=== PATIENT | female | born 1990 | race Hispanic/Latino ===

== ENCOUNTER 2018-07-28 13:14 | Emergency (ER) | payer OTHER ==
[~2018-07-28] VITALS: Ht 165.1 cm; Wt 122.7 kg
[2018-07-28 13:15] VITALS: BP 128/69
[2018-07-28] MEDS ORDERED: PRENTAB9 PO (13:24)
[2018-07-28 15:27] LABS: BASO % 0.3 % (0.0-1.0); EOS # 0.1 10^3/uL (0.0-0.50); EOS % 0.9 % (0.0-3.0); HEMATOCRIT 39.3 % (36.0-47.0); HEMOGLOBIN 12.3 g/dl (12.0-15.5); LYMPH # 2.7 10^3/uL (1.5-6.5); LYMPH % 30.4 % (24.0-44.0); MEAN CORPUSCULAR HEMOGLOBIN 24.7 pg (27.0-33.0); MEAN CORPUSCULAR HGB CONC 31.3 g/dl (32.0-36.5); MEAN CORPUSCULAR VOLUME 78.9 fl (80.0-96.0); MONO # 0.6 10^3/uL (0.0-0.8); MONO % 6.9 % (0.0-5.0); NEUTROPHILS # 5.4 10^3/uL (1.8-7.7); NEUTROPHILS % 61.3 % (36.0-66.0); PLATELET COUNT, AUTOMATED 329 10^3/uL (150-450); RED BLOOD COUNT 4.98 10^6/uL (4.00-5.40); WHITE BLOOD COUNT 8.8 10^3/uL (4.0-10.0)
[2018-07-28 16:16] LABS: BLOOD UREA NITROGEN 6 MG/DL (7-18); CALCIUM LEVEL 8.6 MG/DL (8.5-10.1); CARBON DIOXIDE LEVEL 25 MEQ/L (21-32); CHLORIDE LEVEL 106 MEQ/L (98-107); GLOMERULAR FILTRATION RATE > 60.0 (>60); GLUCOSE, FASTING 83 MG/DL (70-100); HCG, SERUM QUANTITATIVE 26954 MIU/ML; POTASSIUM SERUM 3.7 MEQ/L (3.5-5.1); SODIUM LEVEL 137 MEQ/L (136-145)
[2018-07-28] MEDS ORDERED: KEFL500C17 PO (16:50)
--- NOTE | 2018-07-28 17:23 | REP ---
FIRST TRIMESTER ULTRASOUND: Real-time sonographic evaluation of the gravid uterus is performed utilizing transabdominal technique. There is a single living intrauterine gestation. The estimated gestational age is 7 weeks 2 days based on a crown-rump length of 11 mm. EDC 03/14/2019. heart rate is 143 beats per minute. There is no subchorionic hemorrhage. No maternal adnexal region abnormality is seen. There is no evidence of ovarian torsion. Electronically Signed by Carlo Chan MD 07/28/2018 06:35 P
== END 2018-07-28 17:02 | disposition home or self-care (01) ==
LOC: M ED 13:14
DX: O23.91 Unspecified genitourinary tract infection in pregnancy, first trimester (principal); R82.71 Bacteriuria; Z3A.01 Less than 8 weeks gestation of pregnancy

== ENCOUNTER 2018-08-12 21:17 | Emergency (ER) | payer OTHER ==
[~2018-08-12] VITALS: Ht 167.6 cm; Wt 120.9 kg
[~2018-08-12 21:17] MED LIST: KEFL500C17 PO; PRENTAB9 PO
[2018-08-12] MEDS ORDERED: NS 1,000 ML IV ONE (22:45)
[2018-08-12] MEDS ORDERED: ACETAMINOPHEN TAB 650MG DOSE (2X325MG) PO ONE (22:45)
[2018-08-12] MEDS ORDERED: DOCUSATE SODIUM 100 MG CAP PO ONE (23:45)
[2018-08-12 23:53] LABS: BASO % 0.3 % (0.0-1.0); EOS % 0.3 % (0.0-3.0); HEMATOCRIT 36.4 % (36.0-47.0); HEMOGLOBIN 11.6 g/dl (12.0-15.5); LYMPH % 26.3 % (24.0-44.0); MEAN CORPUSCULAR HEMOGLOBIN 24.8 pg (27.0-33.0); MEAN CORPUSCULAR HGB CONC 31.9 g/dl (32.0-36.5); MEAN CORPUSCULAR VOLUME 77.8 fl (80.0-96.0); MONO # 0.8 10^3/uL (0.0-0.8); MONO % 6.9 % (0.0-5.0); NEUTROPHILS # 7.4 10^3/uL (1.8-7.7); NEUTROPHILS % 65.8 % (36.0-66.0); PLATELET COUNT, AUTOMATED 333 10^3/uL (150-450); RED BLOOD COUNT 4.68 10^6/uL (4.00-5.40); WHITE BLOOD COUNT 11.2 10^3/uL (4.0-10.0)
--- NOTE | 2018-08-13 00:07 | REPVR ---
EXAM: US First Trimester, Transabdominal EXAM DATE/TIME: 08/12/2018 11:11 PM CLINICAL HISTORY: 27 years old, female; complicated by abdominal or pelvic pain; Left lower quadrant; First trimester; Gestational age or lmp: Lmp 06/08/18; ; Additional info: Abdominal cramping TECHNIQUE: Imaging protocol: Real-time transabdominal obstetrical ultrasound of the maternal pelvis and a first trimester , less than 14 weeks 0 days, with image documentation. COMPARISON: No relevant prior studies available. FINDINGS: GESTATION: Gestation: Single live intrauterine corresponding to 10 weeks 0 days with MINDI of 03/10/19, concordant with prior ultrasound and LMP. pole is identified. [place]-rump length is 3.1 cm. Heart rate: heart rate is 153 beats per minutes. Placenta: No subchorionic hemorrhage was identified. Amniotic fluid: Amniotic and chorionic fluid are normal for gestational age. MATERNAL: Uterus: Unremarkable. Cervix: Unremarkable. Right adnexa: Unremarkable. Left adnexa: Unremarkable. Intraperitoneal: No intraperitoneal free fluid. IMPRESSION: No acute finding. Single live intrauterine corresponding to 10 weeks 0 days with MINDI of 03/10/19, concordant with prior ultrasound and LMP. Electronically signed by: Mare Gonzalez On 08/13/2018 00:07:10 AM
[2018-08-13 01:14] VITALS: BP 134/79
[2018-08-13 01:15] LABS: ALBUMIN 3.4 GM/DL (3.2-5.2); ALT/SGPT 20 U/L (12-78); BILIRUBIN,DIRECT < 0.1 MG/DL (0.0-0.2); BILIRUBIN,TOTAL 0.2 MG/DL (0.2-1.0); BLOOD UREA NITROGEN 9 MG/DL (7-18); CALCIUM LEVEL 8.4 MG/DL (8.5-10.1); CARBON DIOXIDE LEVEL 23 MEQ/L (21-32); CHLORIDE LEVEL 108 MEQ/L (98-107); CREATININE FOR GFR 0.72 MG/DL (0.55-1.30); GLOMERULAR FILTRATION RATE > 60.0 (>60); GLUCOSE, FASTING 83 MG/DL (70-100); HCG, SERUM QUANTITATIVE 49497 MIU/ML; LIPASE 269 U/L (73-393); POTASSIUM SERUM 3.6 MEQ/L (3.5-5.1); SODIUM LEVEL 138 MEQ/L (136-145); TOTAL PROTEIN 7.4 GM/DL (6.4-8.2)
[2018-08-13] MEDS ORDERED: COLA100C5 PO (01:27)
== END 2018-08-13 01:35 | disposition home or self-care (01) ==
LOC: M ED 21:17
DX: O99.611 Diseases of the digestive system complicating pregnancy, first trimester (principal); Z3A.10 10 weeks gestation of pregnancy; Z87.440 Personal history of urinary (tract) infections; Z86.19 Personal history of other infectious and parasitic diseases; Z79.899 Other long term (current) drug therapy

== ENCOUNTER 2018-09-24 19:10 | Emergency (ER) | payer OTHER ==
[~2018-09-24] VITALS: Ht 167.6 cm; Wt 119.1 kg
[~2018-09-24 19:10] MED LIST changes: +COLA100C5 PO
[2018-09-24 19:11] VITALS: BP 126/63
== END 2018-09-24 20:50 | disposition home or self-care (01) ==
LOC: M ED 19:10
DX: O26.892 Other specified pregnancy related conditions, second trimester (principal); R10.2 Pelvic and perineal pain; Z3A.15 15 weeks gestation of pregnancy

== ENCOUNTER 2018-12-30 05:18 | Emergency (ER) | payer OTHER ==
[~2018-12-30] VITALS: Ht 165.1 cm; Wt 119.1 kg
[2018-12-30 08:28] LABS: HEMATOCRIT 34.9 % (36.0-47.0); MEAN CORPUSCULAR HEMOGLOBIN 24.9 pg (27.0-33.0); MEAN CORPUSCULAR HGB CONC 31.5 g/dl (32.0-36.5); PLATELET COUNT, AUTOMATED 305 10^3/uL (150-450); RED BLOOD COUNT 4.42 10^6/uL (4.00-5.40); WHITE BLOOD COUNT 9.2 10^3/uL (4.0-10.0)
[2018-12-30 09:07] LABS: ALBUMIN 2.6 GM/DL (3.2-5.2); ALT/SGPT 25 U/L (12-78); BILIRUBIN,DIRECT < 0.1 MG/DL (0.0-0.2); BILIRUBIN,TOTAL 0.2 MG/DL (0.2-1.0); TOTAL PROTEIN 7.7 GM/DL (6.4-8.2)
[2018-12-30 10:11] VITALS: BP 112/61
== END 2018-12-30 10:17 | disposition home or self-care (01) ==
LOC: M ED 05:18
DX: O12.22 Gestational edema with proteinuria, second trimester (principal); Z3A.25 25 weeks gestation of pregnancy

== ENCOUNTER 2019-02-17 00:56 | Inpatient (IN) | payer OTHER ==
[~2019-02-17] VITALS: Ht 165.1 cm; Wt 120.0 kg
[2019-02-17] VITALS (12 sets, daily range): BP systolic 113–139; BP diastolic 57–75
[2019-02-17] MEDS ORDERED: LR 1,000 ML IV SCH (02:45)
[2019-02-17] MEDS ORDERED: LR 1,000 ML IV ONE (02:45)
--- NOTE | 2019-02-17 02:50 | IPNPDOC ---
Text Note Date of Service The patient was seen on 02/17/19. NOTE Patient is a 28 yo G1 @ 36+3wks gestation presents with concern for new onset vaginal bleeding that started 2 hrs prior. Report she did not have contractions prior to bleeding. now she is feeling mild contractions. denies LOF. vitals: normal discomfort with contractions, AOX3 abd: obese, gravid, nttp, nd cephalic by cam's FHT: 135/mod mariano/pos accel/no decel toco: ctx q 1-2mins speculum exam: old blood in vault, cervix visually closed, no active bleeding CE: Fingertip/50/high, posterior TVUS: cervix visually long, no funneling, no hematoma noted, placental edge no within 4cm of cervix, head well applied. a/p patient @ 36+3 weeks with vaginal bleeding. no active bleeding at this time. start IV and hydrate patient. get abruption labs and type and screen. Will reassess after hydration and recheck cervix. PHANI BRAN DO Feb 17, 2019 02:50
[2019-02-17 03:06] LABS: HEMATOCRIT 29.9 % (36.0-47.0); HEMOGLOBIN 9.4 g/dl (12.0-15.5); MEAN CORPUSCULAR HEMOGLOBIN 23.4 pg (27.0-33.0); MEAN CORPUSCULAR HGB CONC 31.4 g/dl (32.0-36.5); MEAN CORPUSCULAR VOLUME 74.6 fl (80.0-96.0); PLATELET COUNT, AUTOMATED 364 10^3/uL (150-450); RED BLOOD COUNT 4.01 10^6/uL (4.00-5.40); WHITE BLOOD COUNT 14.3 10^3/uL (4.0-10.0)
[2019-02-17 03:19] LABS: INR 0.99; PROTHROMBIN TIME 12.8 SECONDS (11.8-14.0)
[2019-02-17 03:20] LABS: PARTIAL THROMBOPLASTIN TIME 28.8 SECONDS (25.0-38.4)
[2019-02-17 03:34] LABS: ALBUMIN 2.2 GM/DL (3.2-5.2); ALT/SGPT 17 U/L (12-78); BILIRUBIN,TOTAL 0.2 MG/DL (0.2-1.0); BLOOD UREA NITROGEN 8 MG/DL (7-18); CALCIUM LEVEL 8.3 MG/DL (8.5-10.1); CARBON DIOXIDE LEVEL 19 MEQ/L (21-32); CHLORIDE LEVEL 110 MEQ/L (98-107); CREATININE FOR GFR 0.65 MG/DL (0.55-1.30); GLOMERULAR FILTRATION RATE > 60.0 (>60); GLUCOSE, FASTING 93 MG/DL (70-100); POTASSIUM SERUM 4.4 MEQ/L (3.5-5.1); SODIUM LEVEL 136 MEQ/L (136-145); TOTAL PROTEIN 6.5 GM/DL (6.4-8.2)
[2019-02-17] MEDS: LR 1,000 ML IV SCH ×3 (05:31→21:31)
--- NOTE | 2019-02-17 06:22 | HPEPDOC ---
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 ABDOMEN: Gravid and non-tender to touch. FETUS: Is vertex (VTX) by sterile vaginal examination (SVE), fetus is vertex (VTX) by Cam and US. HEART RATE: Regular rate and rhythm. LUNGS: Clear to auscultation (CTA). EXTREMITIES: No edema/erythema/tenderness. EFW: 3200gm by cam's Other physical findings bright red blood with speculum exam and cervical check Laboratory Data 24H LABS Laboratory Tests 2 02/17/19 02:57: Nucleated Red Blood Cells % (auto) 0.0, Prothrombin Time 12.8, Prothromb Time International Ratio 0.99, Activated Partial Thromboplast Time 28.8, Fibrinogen 676H, Anion Gap 7L, Glomerular Filtration Rate > 60.0, Calcium Level 8.3L, Total Bilirubin 0.2, Aspartate Amino Transf (AST/SGOT) 16, Alanine Aminotransferase (ALT/SGPT) 17, Alkaline Phosphatase 162H, Total Protein 6.5, Albumin 2.2L, Albumin/Globulin Ratio 0.51L CBC/BMP Laboratory Tests 02/17/19 02:57 Pertinent Laboratoy Data Blood Type: O+ RBC Antibody Screen: Negative HIV: Negative Hepatitis B: Negative Rapid Plasma Reagin: Nonreactive Rubella: Immune Chlamydia/Gonorrhea: Negative Group B Streptococcus: Negative ([id number]) Glucose Tolerance Test: 113 Anatomy Ultrasound Placenta Location: Anterior Normal Anatomy: Yes Placenta Previa: No Other Ultrasounds growth scan @32+4wks (EFW 2245g, 75%tile) Steroid Therapy Steroid Therapy: No Vaginal Examination Dilation: Fingertip Effacement: 50% Station: -3 Cervical Consistency: Firm Cervical Position: Posterior Presentation: Cephalic presentation Assessment Heart Rate (FHR): 135 Variability: Moderate Accelerations: Positive Decelerations: None Tocometer Contractions: Yes Frequency: every 1-3 min. Assessment/Plan Assessment patient is a 28 yo G1 @ 36+3wks MINDI [id number] but sure lmp c/w 1st trimester US. patient with s/s concerning for placenta abruption. Patient currently stable and fht shows a reactive tracing. Recommend induction of labor at this time. Discussed induction of labor starting with pitocin and roland bulb and arom as indicated. Discussed external monitor and internal monitor as indicated with IUPC and or FSE. Discussed risk of emergent section, use of forceps or vacuum assisted vaginal delivery for concerns or prolonged 2nd stage, risks associated with forceps and vacuum, infection requiring antibiotics and extended hospital stay, bleeding requiring blood transfusion and associated risk of anaphylactic reaction as well as transmission of blood borne pathogens, episiotomy and pain. Plan Admit and orient. Effervescent Salts Compounder and consent. Diet: clear liquid Group B Streptococcus (GBS) Neg. Labs and intravenous (IV) per unit protocol. Counseled on Pitocin and induction of labor (IOL). Anticipate [normal spontaneous delivery ()]. C-S as appropriate. PHANI BRAN DO Feb 17, 2019 06:07
[2019-02-17] MEDS: BETAMETHASONE SOLUSPAN 6MG/ML INJ 5ML (J0702) IM SCH (08:10)
[2019-02-17] MEDS: OXYTOCIN DRIP 30 UNITS in IV 1 EA IV SCH ×2 (08:40→11:28)
--- NOTE | 2019-02-17 10:20 | REP ---
Limited obstetric sonography: History: Vaginal bleeding. Rule out abruption. Findings: Limited obstetric sonography demonstrates a single living intrauterine gestation in a cephalic lie. Amniotic fluid is subjectively somewhat low. ANATOLY is decreased at 5.5 cm (7.6-24.8 cm). An mgiuel-fundal placenta is seen without evidence of previa or abruption, grade III. SD ratio in the umbilical cord artery by Doppler is slightly elevated at 3.16 (1.88-0.88). heart rate is recorded at 144 beats per minute. Closed cervical length viewed transabdominally is 3.7 cm. Electronically Signed by Juan Bradshaw MD 02/17/2019 12:42 P
[2019-02-17 18:19] LABS: HEMATOCRIT 33.8 % (36.0-47.0); HEMOGLOBIN 10.3 g/dl (12.0-15.5); MEAN CORPUSCULAR HEMOGLOBIN 23.2 pg (27.0-33.0); MEAN CORPUSCULAR HGB CONC 30.5 g/dl (32.0-36.5); MEAN CORPUSCULAR VOLUME 76.1 fl (80.0-96.0); PLATELET COUNT, AUTOMATED 354 10^3/uL (150-450); RED BLOOD COUNT 4.44 10^6/uL (4.00-5.40); WHITE BLOOD COUNT 12.1 10^3/uL (4.0-10.0)
[2019-02-18 07:08] LABS: HEMATOCRIT 30.1 % (36.0-47.0); HEMOGLOBIN 9.3 g/dl (12.0-15.5); MEAN CORPUSCULAR HGB CONC 30.9 g/dl (32.0-36.5); MEAN CORPUSCULAR VOLUME 74.5 fl (80.0-96.0); PLATELET COUNT, AUTOMATED 352 10^3/uL (150-450); RED BLOOD COUNT 4.04 10^6/uL (4.00-5.40); WHITE BLOOD COUNT 13.1 10^3/uL (4.0-10.0)
--- NOTE | 2019-02-18 07:12 | IPN ---
DATE OF SERVICE: 02/17/2019 This lady is a 1, para 0 who was admitted yesterday. She is 28 years of age, 1, para 0, EDC is 03/14/2019. She came in because of vaginal bleeding and pain and on initial evaluation, speculum examination revealed a moderate amount of bright red blood and at cervical check, the diagnosis at that time was possible abruptio placenta. She had a chemistry done and CBC all within normal range and subsequently she stopped bleeding and seemed to settle down and over the course of her stay here, she had no evidence of active bleeding. She had a category 1 strip. No contractions. A ultrasound was performed to rule in or rule out abruptio placenta and the ultrasound report suggested that it was vertex presenting. Amniotic fluid 5.5 cm. Placenta was without previa or abruption, grade 3. SD ratio was slightly elevated 3.16. heart was normal. Cervix was closed at 3.7. Digital examination unchanged cervix. No evidence of active bleeding or blood on the finger. Cervix was posterior. Vertex was high. Category 1 strip. Our plan of attack at this time was she was started on betamethasone 12 mg every 24 and her betamethasone will be complete at 0900 hours tomorrow morning. Will reassess her CBC and reassess her ultrasound to evaluate ANATOLY and at that time make a decision to either continue with this similar plan or to induce her for delivery, but at the present time, she has a category 1 strip. No contractions. No bleeding and therefore it is safe to proceed on the present plan of management. We discussed this with her and the patient was somewhat a little distraught because she was given mixed messages as to the plan of management, however we would like to get the steroid complete before either augmenting or inducing her labor and she has accepted that as a good alternative to active induction of labor at the present time with the possibility of the baby ending up in the NICU.
[2019-02-18 08:04] VITALS: BP 122/60
[2019-02-18] MEDS: BETAMETHASONE SOLUSPAN 6MG/ML INJ 5ML (J0702) IM SCH (08:11)
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
[2019-02-18] MEDS ORDERED: SLF 3 ML SYR IV PRN (10:45)
[2019-02-18] MEDS: PRENATAL VITAMINS CHEWABLE TABLET PO SCH (10:46)
[2019-02-18] MEDS: SLF 3 ML SYR IV SCH ×2 (11:00→22:48)
[2019-02-18 11:40] VITALS: BP 123/61
[2019-02-18 17:00] VITALS: BP 117/61
[2019-02-18 22:00] VITALS: BP 135/69
[2019-02-19] MEDS: SLF 3 ML SYR IV SCH (05:19)
[2019-02-19 06:00] VITALS: BP 130/64
[2019-02-19] MEDS ORDERED: PRENCHW PO (07:33)
--- NOTE | 2019-02-19 07:35 | DS.PDOC ---
Discharge Summary General Date of Admission Feb 17, 2019 at 05:44 Date of Discharge Feb 19, 2019 Discharge Summary HOSPITAL COURSE: Ms. Walters is a 28 yo who was admitted to [facility] on 17Feb2019 at 36+3 weeks for concern of 3rd trimester vaginal bleeding. She was monitored for >36 hours had had no further bleeding. Workup did not reveal evidence of placental abruption after prolonged monitoring. She was ultimately stabilized and scheduled for an IOL this Saturday at 37 weeks. status remained reassuring throughout her hospital stay. will return from work to pick her up this evening after 1700. She will be discharged then. DISCHARGE MEDICATIONS: Please see below. ALLERGIES: Please see below. PHYSICAL EXAMINATION ON DISCHARGE: VITAL SIGNS: Please see below. GENERAL: AAOX3, sitting up in bed, NAD ABDOMINAL EXAMINATION: Gravid uterus. No tenderness to palpation. EXTREMITIES: No edema PSYCHIATRIC EXAMINATION: Affect appropriate. LABORATORY DATA: Please see below. ACTIVITY: Pelvic rest until IOL. DIET: Regular DISCHARGE PLAN: Discharge home DISPOSITION: Discharge home after 1700 this evening when returns from training. DISCHARGE INSTRUCTIONS: 1. IOL scheduled for Saturday ITEMS TO FOLLOWUP ON ON OUTPATIENT: 1. IOL scheduled for Saturday DISCHARGE CONDITION: Stable. TIME SPENT ON DISCHARGE: Greater than 20 minutes. Shruthi Maloney DO Vital Signs/I&Os Vital Signs Date Time Temp Pulse Resp B/P (MAP) Pulse Ox O2 Delivery O2 Flow Rate FiO2 02/19/19 06:00 97.5 62 18 130/64 (86) 99 Room Air I&O- Last 24 Hours up to 6 AM 02/19/19 06:00 Intake Total 1500 ml Balance 1500 ml Discharge Medications Scheduled Pnv No.118/Iron Fumarate/FA ( 19 Chewable Tablet) 1 Each Tab.chew, 1 TAB PO DAILY No.137/Iron/Folic Acd ( Vitamin Tablet) 1 Each Tablet, 1 TAB PO DAILY, (Reported) Allergies Coded Allergies: No Known Allergies (Unverified , 08/12/18) SHRUTHI MALONEY DO Feb 19, 2019 07:35
[2019-02-19] MEDS ORDERED: ADACEL/BOOSTRIX VACCINE (DIPHTH/PERTUSS/ACELL/TETANUS)0.5ML SYR (90715) IM ONE (09:00)
[2019-02-19] MEDS ORDERED: INFLUENZA QUADRIVALENT PF VACCINE 0.5ML SYRINGE (90686) IM ONE (09:00)
[2019-02-19] MEDS: PRENATAL VITAMINS CHEWABLE TABLET PO SCH (09:20)
[2019-02-19 11:41] VITALS: BP 120/62
== END 2019-02-19 17:41 | disposition home or self-care (01) | DRG 833 ==
LOC: M LDO 00:56 → M LDI 05:44 → M OBS 02-18 13:12
PROVIDERS: ADMIT Obstetrics & Gynecology; ATTEND Obstetrics & Gynecology
DX: O45.93 Premature separation of placenta, unspecified, third trimester (principal); Z3A.36 36 weeks gestation of pregnancy; O99.213 Obesity complicating pregnancy, third trimester; E66.01 Morbid (severe) obesity due to excess calories; Z56.5 Uncongenial work environment

== ENCOUNTER 2019-02-21 06:14 | Inpatient (IN) | payer OTHER ==
[~2019-02-21] VITALS: Ht 165.1 cm; Wt 126.1 kg
[2019-02-21] VITALS (18 sets, daily range): BP systolic 103–154; BP diastolic 53–87
[~2019-02-21 06:14] MED LIST changes: +PRENCHW PO
[2019-02-21 07:18] LABS: HEMOGLOBIN 8.9 g/dl (12.0-15.5); MEAN CORPUSCULAR HEMOGLOBIN 23.1 pg (27.0-33.0); MEAN CORPUSCULAR HGB CONC 30.7 g/dl (32.0-36.5); MEAN CORPUSCULAR VOLUME 75.3 fl (80.0-96.0); PLATELET COUNT, AUTOMATED 350 10^3/uL (150-450); RED BLOOD COUNT 3.85 10^6/uL (4.00-5.40); WHITE BLOOD COUNT 10.2 10^3/uL (4.0-10.0)
[2019-02-21] MEDS ORDERED: SLF 3 ML SYR IV PRN (09:00)
[2019-02-21] MEDS ORDERED: miSOPROStol 50 MCG 1/2 TAB (S0191) PV ONE (09:45)
[2019-02-21] MEDS ORDERED: LACTATED RINGER'S 1000 ML IV ONE (09:45)
[2019-02-21] MEDS: LR 1,000 ML IV SCH ×2 (10:05→16:30)
[2019-02-21] MEDS: SLF 3 ML SYR IV SCH ×2 (14:00→22:00)
[2019-02-21] MEDS ORDERED: OXYTOCIN DRIP 30 UNITS in IV 1 EA IV SCH (16:30)
--- NOTE | 2019-02-21 16:45 | HPE ---
DATE OF ADMISSION: 02/21/2019 This lady is a 28-year-old 1, para 0, last menstrual period (LMP) 06/07/2018, estimated date of confinement (EDC) 03/08/2019 at 37 and 5 weeks of gestation, admitted for induction of labor, having had a history questionable chronic abruptio 3-4 days ago. RISK FACTORS: Questionable chronic abruption, BMI of 43 and anemia. LABORATORIES: O positive, HIV negative, hepatitis negative, rapid plasma reagin (RPR) negative, rubella immune. Varicella immune. Pap normal. Urine negative. Gonorrhea and chlamydia negative. One-hour glucose 85. Her 28-week glucose tolerance test (GTT) was 119 and she is group B streptococcus (GBS) negative. On examination, she is in no acute distress. Symphysis fundus height is 39, vertex, category one strip. Presenting part is not in the pelvis. 2 cm very posterior thick, 50%. There was no blood demonstrated on the glove. Her hemorrhage category risk is 2. Blood pressure 113/78, respirations 18, pulse 71, temperature 97.0. Urine is 1000, pH of 7, trace of protein, negative for everything else. She is normocephalic, atraumatic. Neck full range of motion. Pupils equal and reactive to light. Distal pulses are symmetric. No evidence of deep venous thrombosis (DVT), pulmonary embolism (PE) or superficial phlebitis. Chest is clear bilaterally to bases. No wheezes or rhonchi. No costovertebral angle (CVA) tenderness. Abdomen was soft. Four quadrant bowel sounds are noted. She has no rashes, lesions or pruritus. No arthralgia or myalgia or joint pain. No complaint cough, wheeze, shortness of breath or dyspnea on exertion. Not bleeding. Neuro complete. No incontinency or frequency. No nausea, vomiting, diarrhea or constipation. No diabetic issues. She has no EVENT CREW TECHNICIAN history. She has no sexually transmitted diseases (STDs) or abnormal Pap smears. PAST MEDICAL HISTORY: Unremarkable. SURGICAL HISTORY: Noncontributory. FAMILY HISTORY: Noncontributory. SOCIAL HISTORY: She does not smoke, drink or abuse drugs. She is . There is no domestic violence. We reviewed the risks and benefits of delivery including vaginal delivery with possible use of forceps or vacuum devices needed for maternal or indications, forceps or vacuum devices that can assist in vaginal delivery when normal pushing efforts cannot achieve delivery on their own or when deliveries needed in emergency for baby's well-being, medications that may be required to induce or augment labor to achieve vaginal delivery. Episiotomy may or may not be required in order to help baby deliver vaginally. You may also require repair of any lacerations or tears in the vagina, vulva and are created by delivery. In some cases, emergencies arise that you need to have an emergency section. The physician will discuss it with you. section is only done under maternal or indications. Risks of vaginal delivery are not limited to but include bleeding, infection, injury to vagina, pelvic structures, injury to baby, damage to the uterus, reaction to anesthesia, uterine rupture, remote hysterectomy because of life-threatening bleeding issues, medication use to augment or induce labor may increase risk of section, hemorrhage, tachysystole, or uterine rupture. There is also risk of injury to bowel and urinary incontinence, or with use of vacuum or forceps, the baby may have some bruising, scratches, hematomas of the head or intracranial bleed. The patient expressed understanding of all same and we will start with Cytotec followed up possibly when cervix was ripe enough to use a Espinosa bulb with Pitocin. We had 25-minute discussion. All questions were answered. Safe to proceed.
[2019-02-21] MEDS ORDERED: PROMETHAZINE INJ 25 MG/ML VIAL (J2550) IV ONE (23:00)
[2019-02-21] MEDS ORDERED: BUTORPHANOL 2 MG/ML INJ (J0595) IV ONE (23:00)
[2019-02-22] VITALS (86 sets, daily range): BP systolic 107–170; BP diastolic 53–86
[2019-02-22] MEDS ORDERED: FENTANYL 2MCG/ML ROPIVACAINE 0.2% IN 0.9% NACL 100ML IVBAG As Ordered ONE (02:48)
[2019-02-22] MEDS: SLF 3 ML SYR IV SCH ×3 (06:00→22:48)
[2019-02-22] MEDS ORDERED: EPIDURAL COMMENT XX SCH (07:00)
[2019-02-22] MEDS ORDERED: ONDANSETRON 4MG/2ML VIAL (J2405) IV PRN ×3 (07:00→17:30)
[2019-02-22] MEDS ORDERED: NALOXONE INJ 0.4 MG/1 ML VIAL (J2310) IV PRN ×3 (07:00→16:30)
[2019-02-22] MEDS ORDERED: EPIDURAL/PCA KEYS XX PRN (07:00)
[2019-02-22] MEDS ORDERED: ROPIVACAINE HCL IVBAG 200 ML EPIDURAL SCH (07:00)
[2019-02-22] MEDS ORDERED: REFRIGERATOR IV KEYS XX PRN (07:00)
[2019-02-22] MEDS ORDERED: diphenhydrAMINE INJ 50MG/ML VIAL (J1200) IV PRN ×2 (07:00→16:30)
[2019-02-22] MEDS ORDERED: ePHEDrine SULFATE 25 MG/5 ML(5MG/ML) SYRINGE IV PRN (07:00)
[2019-02-22] MEDS ORDERED: FENTANYL/ROPIVACAINE/NACL BAG 100 ML EPIDURAL SCH (10:00)
[2019-02-22] MEDS: LR 1,000 ML IV SCH (10:15)
--- NOTE | 2019-02-22 11:11 | IPN ---
DATE: 02/21/2019 This lady was admitted for induction of labor at 37 and 5 because of questionable abruptio placenta. She initially started with Cytotec 50 mg by mouth. She was having some contractions and feeling them. After 4 hours, re-examination - the cervix was 2 cm, mid position, soft, 50% effaced, and the presenting part was a -3. We were able to negotiate a Cook's catheter. She was draining what appeared to be clear liquor, continuous in volume. Cook's catheter was placed with ease, 16 mg of normal saline in the uterine and 40 in the cervical. We also added some Pitocin per protocol and will eventually reassess her at the time at which she wants to have an epidural. Presently we have a category one strip, normotensive, afebrile and safe to continue.
--- NOTE | 2019-02-22 13:13 | IPN ---
DATE: 02/22/2019 This lady is a 1, para 0, who was admitted for induction of labor because of question of abruption of abruptio placenta. She had a Espinosa bulb placed with Pitocin. She requested analgesics in the form of intravenous (IV) medications. She was given Stadol and Phenergan, which worked well for her and then, after being at eight milliunits per minute of Pitocin, she requested to have an epidural, at which time she did have her epidural. Had some issues with high-level epidural and inability to swallow. She was given multiple the multiple doses of ephedrine. Anesthesia sat with her for about an hour and things resolved. heart was category one throughout the contractions, spaced out to 46 minutes per minute. The Espinosa bulb was removed and at 5:51 a.m. she was found to be 4 cm, 100% effaced, -1 station. Clear liquor continued to come. The vertex was well applied to the cervix. We are going to increase the Pitocin to initiate contractions that are closer together. Safe to proceed.
[2019-02-22] MEDS ORDERED: BUPIVACAINE/DEXTROSE 0.75% 2 ML AMP As Ordered ONE (15:27)
[2019-02-22] MEDS ORDERED: PROPOFOL 200 MG/20 ML VIAL As Ordered ONE (15:28)
[2019-02-22] MEDS ORDERED: SUCCINYLCHOLINE 100 MG/5 ML SYRINGE (J0330) As Ordered ONE (15:29)
[2019-02-22] MEDS ORDERED: ACETAMINOPHEN 650 MG SUPP PR ONE (15:30)
[2019-02-22] MEDS ORDERED: ceFAZolin SOD 2 GM in IV 1 EA IV ONE (15:30)
[2019-02-22] MEDS ORDERED: BICITRA 30ML SOLN UDC PO ONE (15:30)
[2019-02-22] MEDS ORDERED: BUPIVACAINE HCL 0.25% 10 ML VIAL SC ONE (15:30)
[2019-02-22] MEDS ORDERED: OXYTOCIN INJ 10 UNITS/ML VIAL (J2590) As Ordered ONE (15:45)
[2019-02-22] MEDS ORDERED: AZITHROMYCIN INJ 500 MG, VIAL MATE ADAPTER 1 EACH in D5W 250 ML IV ONE (15:45)
[2019-02-22] MEDS ORDERED: ONDANSETRON 4MG/2ML VIAL (J2405) As Ordered ONE (15:48)
[2019-02-22 16:13] LABS: CORD GAS ABE A -5.9; CORD GAS HCO3 A 19.8 MEQ/L; CORD GAS O2 SAT A 52.6 %; CORD GAS PCO2 A 39.7 mmHg; CORD GAS PH A 7.316 UNITS; CORD GAS PO2 A 22.9 mmHg; CORD GAS SBC A 18.6 MEQ/L
[2019-02-22 16:15] LABS: CORD GAS HCO3 V 19.8 MEQ/L; CORD GAS O2 SAT V 53.6 %; CORD GAS PCO2 V 39.9 mmHg; CORD GAS PH V 7.313 UNITS; CORD GAS PO2 V 22.3 mmHg; CORD GAS SBC V 18.6 MEQ/L
[2019-02-22] MEDS ORDERED: NALBUPHINE HCL 10 MG/ML AMP (J2300) IV PRN ×2 (16:30→17:30)
[2019-02-22] MEDS ORDERED: METOCLOPRAMIDE INJ 10MG/2ML VIAL (J2765) IV PRN (16:30)
[2019-02-22] MEDS ORDERED: MORPHINE PRES-FREE INJ 10 MG/10 ML VIAL (J2274) As Ordered ONE (16:32)
[2019-02-22] MEDS ORDERED: OXYTOCIN INJ 10 UNITS/ML VIAL (J2590) IV ONE (17:15)
[2019-02-22] MEDS ORDERED: IBUPROFEN 800 MG TAB PO PRN (17:15)
[2019-02-22] MEDS ORDERED: MEASLES,MUMPS,RUBELLA VACCINE INJ (MMR-II) (90707) SC SCH (17:15)
[2019-02-22] MEDS ORDERED: ANUSOL HC CREAM 30GM TOP PRN (17:15)
[2019-02-22] MEDS ORDERED: RHOGAM 300 MCG (1500 IU) INJ (J2790) IM SCH (17:15)
[2019-02-22] MEDS ORDERED: DOCUSATE SODIUM 100 MG CAP PO PRN (17:15)
[2019-02-22] MEDS ORDERED: MOM 30ML SUSPENSION UDC PO PRN (17:15)
[2019-02-22] MEDS ORDERED: ACETAMINOPHEN TAB 650MG DOSE (2X325MG) PO PRN (17:15)
[2019-02-22] MEDS ORDERED: PERCOCET 5MG/325MG TAB PO PRN ×2 (17:15)
[2019-02-22] MEDS ORDERED: KETOROLAC 30 MG/ML VIAL (J1885) As Ordered ONE (17:28)
[2019-02-22] MEDS ORDERED: MEPERIDINE INJ 25 MG/ML VIAL (J2175) IV PRN (17:30)
[2019-02-22] MEDS ORDERED: KETOROLAC 30 MG/ML VIAL (J1885) IV PRN (17:30)
[2019-02-22] MEDS: OXYTOCIN DRIP 30 UNITS in IV 1 EA IV SCH ×2 (17:45→20:25)
[2019-02-22] MEDS ORDERED: LR 1,000 ML IV SCH (18:00)
[2019-02-22] MEDS: KETOROLAC 30 MG/ML VIAL (J1885) IV SCH (23:47)
[2019-02-23 02:00] VITALS: BP 105/62
[2019-02-23] MEDS: KETOROLAC 30 MG/ML VIAL (J1885) IV SCH ×2 (05:48→11:48)
[2019-02-23] MEDS: SLF 3 ML SYR IV SCH ×2 (05:48→15:58)
[2019-02-23 06:00] VITALS: BP 106/53
--- NOTE | 2019-02-23 06:40 | IPN ---
DATE: 02/22/2019 This lady is 1, para 0 admitted for induction of labor because of presumed abruptio placenta three days ago, despite the negative ultrasound and negative blood work. She had initially Cytotec followed by a Espinosa bulb and [place], had an episode of high epidural with difficulty in swallowing and breathing, however that resolved. She eventually got to be an anterior lip, draining clear liqua all times and she has a category 1 strip. She was concerned about pelvic pain and abdominal pain. On examination there is no molding there is quite a large head. She has a vertex presentation. The lip is reducible and she is in the LOT position. It is well applied to the cervix. Our plan is to use a peanut, change position, IV bolus her and anticipate that the lip will resolve on its own. We explained all this to the patient. She seems to be somewhat reassured. Presently it is safe to proceed. Her blood pressure is elevated at 145/70 based on her pain threshold. She is mobilizing her legs quite nicely on her own and has increased her feeling. She has no issues with swallowing or breathing. We will move forward with this plan.
[2019-02-23 07:03] LABS: HEMATOCRIT 24.1 % (36.0-47.0); HEMOGLOBIN 7.5 g/dl (12.0-15.5); MEAN CORPUSCULAR HEMOGLOBIN 23.2 pg (27.0-33.0); MEAN CORPUSCULAR HGB CONC 31.1 g/dl (32.0-36.5); MEAN CORPUSCULAR VOLUME 74.6 fl (80.0-96.0); PLATELET COUNT, AUTOMATED 314 10^3/uL (150-450); RED BLOOD COUNT 3.23 10^6/uL (4.00-5.40); WHITE BLOOD COUNT 19.9 10^3/uL (4.0-10.0)
[2019-02-23] MEDS: PRENATAL VITAMINS CHEWABLE TABLET PO SCH (08:45)
--- NOTE | 2019-02-23 12:32 | IPN ---
DATE: 02/22/2019 At 1600 hours, this patient was fully dilated and pushing well. She suddenly became uncontrollable and declined to push and was demanding a section. After discussing risks and benefits of section including hemorrhage, infection, perforation, , reoperation, remote possibility of hysterectomy for bleeding, remote possibility of laceration or admission to the intensive care unit (NICU) and remote possibility of , the patient signed the consent form. We are making preparations for primary section of maternal distress.
--- NOTE | 2019-02-23 12:59 | RO ---
DATE OF PROCEDURE: 02/22/2019 This lady is a 28-year-old 1, para 0 who was admitted for induction of labor at 37 and 5 weeks of gestation. She was diagnosed previously with questionable abruptio placenta although all testing did not meet the criteria for diagnosis. She was booked for induction of labor at 39 weeks because her BMI is 43 and she has anemia, however we pushed it up to 37 and 5. She had been monitored intensely until that time. She received Cytotec and then had a Espinosa bulb catheter with Pitocin. She did have spontaneous rupture of membranes with clear liqua and she had a category 1 strip throughout. She eventually was scheduled to have an epidural, however she had an intrathecal instead, which went very high, and the patient had difficulty in swallowing and breathing and anesthesia was called, and spent well over an hour with her and MAX cart was available and they allowed that to wear off. We then discontinued the Pitocin until the patient was stabilized in regards to her respiratory event. She eventually got fully dilated, but she failed to push. She became uncontrollable and demanded to have a section. PREOPERATIVE DIAGNOSES: Primary section for maternal distress and POP position. POSTOPERATIVE DIAGNOSES: Primary section for maternal distress, POP position. ANESTHESIA: Was intrathecal. ESTIMATED BLOOD LOSS: 425 mL. SURGEON: Devonte Eli MD METAL BONDING PRESS OPERATOR: Dr. Solano for extraction, retraction and visualization. After adequate time out, prepped and draped in the supine position, Espinosa catheter bladder draining clear urine, acetaminophen suppository 1300 mg per rectum, appropriate antibiotics preoperatively and sequentials in place, a Pfannenstiel incision was made two fingerbreadths above the symphysis pubis, passing through abdominal layers securing hemostasis. We placed the Mobius device in the abdomen visualizing the lower segment. The bladder was reflected well down anteriorly. A low transverse incision was made into the uterus draining clear liqua still, delivered in the POP position, a live female , 6 pounds 2 ounces or 2780 grams, cord around the neck times one tight. Arterial pH was 7.31, base excess -5.9, venous pH 7.31, base excess -6.0, scores of eight and nine at 1 and 5 minutes respectively. Placenta delivered spontaneously thereafter and was sent off to pathology, three-vessels, membranes and tissues intact. The uterine cavity was swept out. No evidence of excessive bleeding or active tissue. The lower segment was oversewn in the usual fashion in two layers using an inverted stitch for the second layer and reperitonealization was performed. With instrument and pad count correct, the Mobius was removed. Both ovaries and tubes appeared to be normal. The eye was then closed running stitch for the perineum, same for the fascia, interrupted for subcu, Dexon to the skin, subcuticular Marcaine 0.25% 18 mL for the skin for analgesia and the patient was sent to recovery in good condition.
--- NOTE | 2019-02-23 13:40 | IPN ---
DATE: 02/23/2019 day #1: This patient is a 1, now para 1, was admitted for induction of labor at 37 and 5. She had a primary section because of maternal distress, persistent occiput posterior (POP) and failure to push. Delivered a live female 6 pounds 2 ounces (2780 grams). score of 8 and o at one and five minutes, respectfully. Arterial pH 7.31, base excess -5.9, venous pH 7.31, base excess -6.0. She had an intrathecal, which caused her to have difficulty in swallowing and respiratory distress. We had MAX cart outside the room and anesthesia stayed with her for about an hour. Once the resolution was over the intrathecal was left in place overnight. It has just been removed. The [place] will be removed today as a late removal. We anticipate the patient will be able to void. She can now feel her legs and is mobilizing and attempting to breastfeed. Blood pressure this morning is 106/53, respirations 20, pulse 78 and temperature is 98.2. Her admitting hemoglobin is 8.8, hematocrit 29.0 and platelets are 350. We anticipate a repeat CBC tomorrow morning and plans are if she does not have a continuous headache she will be discharged, otherwise anesthesia will be consulted regarding a blood patch. The patient is satisfactory presently.
[2019-02-23 14:00] VITALS: BP 103/55
[2019-02-23] MEDS: ACETAMINOPHEN 500 MG TAB PO PRN (15:58)
[2019-02-23 18:10] VITALS: BP 100/51
[2019-02-23] MEDS: IBUPROFEN 800 MG TAB PO SCH (20:17)
[2019-02-23 22:00] VITALS: BP 119/64
[2019-02-24] MEDS: ACETAMINOPHEN 500 MG TAB PO PRN (01:13)
[2019-02-24] MEDS: IBUPROFEN 800 MG TAB PO SCH ×3 (03:59→20:00)
[2019-02-24 06:00] VITALS: BP 119/61
--- NOTE | 2019-02-24 06:59 | IPNPDOC ---
Progress Note Date of Service: Feb 24, 2019 Day#: 2 Progress Note SUBJECT: Patient is a 28 yo s/p PLTCD POD #2. Patient without concerns today. Denies dizziness. She has been ambulating, voiding spontaneously without issue and tolerating regular diet. Breast feeding without issue. OBJECTIVE: VITAL SIGNS: Within normal limits, afebrile. Alert and oriented times three. Abdomen: Fundus firm at U-2. Soft, NTTP, incision c/d/i. LE: non pitting edema, no erythema/tenderness A/P patient is pod #2, doing well. encourage bf. routine ppc. anticipate d/c home today. Le, DO VS, I&O, 24H, Fishbone Vital Signs/I&O Vital Signs Date Time Temp Pulse Resp B/P (MAP) Pulse Ox O2 Delivery O2 Flow Rate FiO2 02/24/19 06:00 97.5 56 17 119/61 (80) 99 Room Air I&O- Last 24 Hours up to 6 AM 02/24/19 06:00 Output Total 650 ml Balance -650 ml PHANI BRAN DO Feb 24, 2019 06:59
[2019-02-24] MEDS: PRENATAL VITAMINS CHEWABLE TABLET PO SCH (08:51)
[2019-02-24 09:30] VITALS: BP 130/67
[2019-02-24 18:00] VITALS: BP 121/64
[2019-02-25] MEDS: IBUPROFEN 800 MG TAB PO SCH ×3 (03:56→20:28)
[2019-02-25 05:53] VITALS: BP 139/73
[2019-02-25] MEDS: ACETAMINOPHEN 500 MG TAB PO PRN (06:33)
[2019-02-25] MEDS: PRENATAL VITAMINS CHEWABLE TABLET PO SCH (09:43)
[2019-02-25 18:00] VITALS: BP 135/80
--- NOTE | 2019-02-25 19:02 | IPN ---
DATE: 02/25/2019 This lady had a section on 02/22/2019 at 1700 hours for persistent occiput posterior and maternal distress. She had a high intrathecal in which she was complaining of inability to swallow and anesthesia spent well over an hour with her. In the ongoing two days, she was getting a little bit better. However, since the section, she cannot tolerate light. She lies flat and her headache goes away with Tylenol; but any time she gets up she becomes dizzy and grimacing in her face and keeps her eyes closed as tight as possible because of the inadvertent light, which causes her to be dizzy and have a headache. She initially decided not to have a blood patch; but after discussing with her now we are on day three, never having had the lights having to lie flat, that the obvious cure would be to have a blood patch in order to make these issues resolved. The patient has expressed interest in having a blood patch. We are going to reconsult anesthesia and maintained this patient for another day because of her requiring a blood patch. Her vital signs are stable. Her blood pressure is 139/73, respirations 18, pulse 64 and temperature 97.6. She is not had any inadvertent mid or high range blood pressures and the main issue now is her spinal headache. We spent 38 minutes discussing the risks and benefits of having a blood patch and the patient expresses understanding all questions were answered.
[2019-02-26] MEDS: IBUPROFEN 800 MG TAB PO SCH ×2 (04:07→12:35)
[2019-02-26 06:02] VITALS: BP 128/65
[2019-02-26] MEDS ORDERED: IBUP80TA PO (07:17)
[2019-02-26] MEDS ORDERED: DOCU100C16 PO (07:17)
[2019-02-26] MEDS ORDERED: PERCOCET PO ×2 (07:17)
[2019-02-26] MEDS ORDERED: PROC1CRE5 TOP (07:17)
[2019-02-26] MEDS: PRENATAL VITAMINS CHEWABLE TABLET PO SCH (08:19)
--- NOTE | 2019-02-26 20:38 | DSES ---
DATE OF ADMISSION: 02/21/2019 DATE OF DISCHARGE: 02/26/2019 A 28-year-old 1, now para 1, admitted for induction of labor at 37 and 5. Had a primary section for maternal distress and POP position. A live- female infant, 6 pounds 2 ounces, 2780 grams, scores of 8 and 9 at one and five minutes, respectfully. Cord pH: Arterial 7.31, base excess -5.9. Venous pH 7.31, base excess -6.0. She had a history of chronic abruption, anemia, body mass index (BMI) of 43. She did have a high intrathecal and required a blood patch because of spinal headache. This morning her blood pressure is 128/65, respirations 19, pulse 68, temperature 98.2. She is feeling well, mobilized, and not having any headache issues. Discharge hemoglobin 7.5, hematocrit 24.1, and platelets are 314. She has no issues and is asymptomatic. Medications were dispensed. The of rest examination unremarkable. Normocephalic, atraumatic. Neck: Full range of motion. Pupils equal and reactive to light. Distal pulses symmetric. No evidence of deep vein thrombosis (DVT), pulmonary embolism (PE), or superficial phlebitis. Chest is clear bilaterally to bases. No wheezes or rhonchi. No costovertebral angle (CVA) tenderness. Abdomen soft. Four-quadrant bowel sounds are noted. Incision is clean and dry. She has no rashes, lesions, or pruritus. No arthralgia, myalgia. No complaint of joint pain. No complaint of cough, wheezes, shortness breath, or dyspnea on exertion. In summary, we have a term gestation, delivered a live- . Had a spinal headache for patch. Discharged improved. Followup in 2 weeks incision, 6-week . Medications were given. edited: 02/27/2019 0716 tkf KRYSTAL
== END 2019-02-26 18:20 | disposition home or self-care (01) | DRG 773 ==
LOC: M LDI 06:14 → M OBS 02-22 18:09
PROVIDERS: ADMIT Obstetrics & Gynecology; ATTEND Obstetrics & Gynecology
PROC: 3E0P7GC Introduction of Other Therapeutic Substance into Female Reproductive, Via Natural or Artificial Opening (ICD-10-PCS; 2019-02-21)
PROC: 10D00Z1 Extraction of Products of Conception, Low, Open Approach (ICD-10-PCS; principal; 2019-02-22 16:00)
PROC: 3E0R3GC Introduction of Other Therapeutic Substance into Spinal Canal, Percutaneous Approach (ICD-10-PCS; 2019-02-25)
DX: O45.93 Premature separation of placenta, unspecified, third trimester (principal); Z3A.37 37 weeks gestation of pregnancy; O75.0 Maternal distress during labor and delivery; O64.0XX0 Obstructed labor due to incomplete rotation of fetal head, not applicable or unspecified; Z37.0 Single live birth; O74.5 Spinal and epidural anesthesia-induced headache during labor and delivery; R06.03 Acute respiratory distress; R13.10 Dysphagia, unspecified; O99.89 Other specified diseases and conditions complicating pregnancy, childbirth and the puerperium